=== PATIENT | male | born 1960 | race Caucasian/White ===

== ENCOUNTER 2022-06-07 19:09 | Emergency (ER) | payer OTHER ==
[~2022-06-07] VITALS: Ht 190.5 cm; Wt 145.0 kg
[~2022-06-07 19:09] MED LIST: ADULT ASPIRIN E81 MG OR; ASPIRIN EC81 MG PO; DIABETA2.5 MG PO; GENTAMICIN0.11 EX; LEVOTHROID25 MCG OR; LEVOTHYROXIN25 MCG PO; LYRICA150 MG OR; LYRICA150 MG PO; METFORMIN1000 MG PO; NORCO1 TA1 PO; TRICOR145 MG PO; XARELTO20 MG PO
[2022-06-07 19:17] VITALS: BP 128/73
[2022-06-07] MEDS ORDERED: PRAVASTATIN SOD20 MG PO (19:34)
[2022-06-07] MEDS ORDERED: CLOPIDOGREL75 MG PO (19:35)
[2022-06-07] MEDS ORDERED: SPIRONOLACTONE50 MG PO (19:36)
[2022-06-07] MEDS ORDERED: LOSARTAN POTASS50 MG PO (19:36)
[2022-06-07] MEDS ORDERED: TAMSULOSIN HCL0.4 MG PO (19:36)
[2022-06-07] MEDS ORDERED: LEVOTHYROXIN50 MCG PO (19:37)
[2022-06-07] MEDS ORDERED: FUROSEMIDE20 MG PO (19:37)
[2022-06-07 19:38] LABS: HEMATOCRIT 39.3 % (39.0-50.0); HEMOGLOBIN 13.7 g/dl (14.0-18.0); IMMATURE GRANULOCYTES 0.2 % (0.0-5.0); MEAN CORPUSCULAR HGB 32.1 pG CALC (26.0-32.0); MEAN CORPUSCULAR HGB CONC 34.9 g/dL CAL (32.0-36.0); NEUT# 6.3 thou/uL (1.82-7.42); RED BLOOD COUNT 4.27 mill/uL (4.70-6.10); RED CELL DISTRI WIDTH 11.7 % (11.5-15.5)
[2022-06-07] MEDS ORDERED: LOPID600 MG PO (19:38)
[2022-06-07] MEDS ORDERED: GABAPENTIN100 MG PO (19:38)
[2022-06-07] MEDS ORDERED: HUMALOG100 UNIT (19:39)
[2022-06-07] MEDS ORDERED: LEVEMIR100 UNIT (19:40)
[2022-06-07 20:02] LABS: ALBUMIN 4.6 g/dL (3.2-5.0); CREATININE 1.6 mg/dL (0.7-1.3)
[2022-06-07 20:04] LABS: BILIRUBIN, TOTAL 1.3 mg/dL (0.0-1.4); POTASSIUM 5.5 mmol/l (3.5-5.1); TOTAL PROTEIN 8.3 g/dL (6.3-8.2)
[2022-06-07 20:32] LABS: TSH, 3RD GENERATION 3.18 uIU/mL (0.47 - 4.68)
[2022-06-07 20:53] VITALS: BP 106/61
[2022-06-07 21:01] VITALS: BP 101/53
[2022-06-07 21:16] VITALS: BP 112/53
[2022-06-07 21:31] VITALS: BP 118/69
[2022-06-07 21:44] VITALS: BP 118/69
== END 2022-06-07 21:47 | disposition short-term general hospital (02) | DRG 313 ==
LOC: ED 19:09
PROVIDERS: Emergency Medicine
DX: R07.9 Chest pain, unspecified (principal); I49.8 Other specified cardiac arrhythmias; I10 Essential (primary) hypertension; E11.40 Type 2 diabetes mellitus with diabetic neuropathy, unspecified; E78.5 Hyperlipidemia, unspecified; Z79.4 Long term (current) use of insulin; Z20.822 Contact with and (suspected) exposure to COVID-19

== ENCOUNTER 2024-09-15 12:48 | Observation (INO) | payer OTHER ==
[~2024-09-15] VITALS: Ht 190.5 cm; Wt 135.0 kg
[2024-09-15] VITALS (16 sets, daily range): BP systolic 89–142; BP diastolic 60–85
[~2024-09-15 12:48] MED LIST changes: +CLOPIDOGREL75 MG PO; +DOXYCYCLINE100 MG PO; +FUROSEMIDE20 MG PO; +GABAPENTIN100 MG PO; +HUMALOG100 UNIT; +LEVEMIR100 UNIT; +LEVOTHYROXIN50 MCG PO; +LOPID600 MG PO; +LOSARTAN POTASS50 MG PO; +PRAVASTATIN SOD20 MG PO; +SPIRONOLACTONE50 MG PO; +TAMSULOSIN HCL0.4 MG PO
--- NOTE | 2024-09-15 12:50 | NUR ---
PT TO ROOM VIA WC WITH SPOUSE
[2024-09-15] MEDS ORDERED: oxyCODONE 5MG/ ACETAMINOPHEN 325MG TAB PO ONE (13:25)
[2024-09-15] MEDS ORDERED: ONDANSETRON 4 MG/TAB ODT PO ONE (13:25)
[2024-09-15 13:37] LABS: BASO% 0.1 % (0-3); EOS% 0.1 % (0-8); HEMATOCRIT 41.9 % (39.0-50.0); HEMOGLOBIN 14.1 g/dl (14.0-18.0); IMMATURE GRANULOCYTES 0.3 % (0.0-5.0); LYMPH% 5.9 % (15-41); MEAN CELL VOLUME 97.7 fL CALC (80.0-100.0); MEAN CORPUSCULAR HGB 32.9 pG CALC (26.0-32.0); MEAN CORPUSCULAR HGB CONC 33.7 g/dL CAL (32.0-36.0); MONO% 5.6 % (2-13); NEUT# 13.02 thou/uL (1.82-7.42); RED BLOOD COUNT 4.29 mill/uL (4.70-6.10)
[2024-09-15 13:52] LABS: ALBUMIN 3.3 g/dL (3.2-5.0); CREATININE 1.3 mg/dL (0.7-1.3); POTASSIUM 4.5 mmol/l (3.5-5.1); TOTAL PROTEIN 6.2 g/dL (6.3-8.2)
[2024-09-15 14:03] LABS: BILIRUBIN, TOTAL 1.3 mg/dL (0.2-1.3)
[2024-09-15] MEDS ORDERED: INSULIN REGULAR (HUMAN) 100 UNIT/ML INJ IV ONE (14:55)
[2024-09-15] MEDS ORDERED: Iopamidol 370 (Isovue) 76% 100 ML SDV IV ONE (14:55)
[2024-09-15] MEDS ORDERED: FUROSEMIDE 40 MG/4 ML SDV IV ONE (14:55)
--- NOTE | 2024-09-15 17:34 | NUR ---
900ml- urine output
[2024-09-15 17:48] LABS: URINE BILIRUBIN - DIPSTICK Negative (NEGATIVE); URINE BLOOD DIPSTICK Trace-intact (NEGATIVE); URINE GLUCOSE - DIPSTICK 500 mg/dL (NEGATIVE); URINE KETONE Negative (NEGATIVE); URINE LEUK ESTERASE Negative (NEGATIVE); URINE NITRITE - DIPSTICK Negative (Negative); URINE PH 5.5 (4.5-8.0); URINE PROTEIN - DIPSTICK 100 mg/dL (NEG-TRACE); URINE SPECIFIC GRAVITY 1.015; URINE UROBILINOGEN - DIPSTICK 0.2 E.U./dL (0.2)
[2024-09-15 17:49] LABS: URINE COLOR Yellow
[2024-09-15 18:00] LABS: URINE RBC 0-2 RBC/hpf (0-5); URINE WBC 0-2 WBC/hpf (0-5)
[2024-09-15 18:01] LABS: URINE COARSE GRANULAR CAST FEW lpf
--- NOTE | 2024-09-15 19:05 | NUR ---
REPORT RECEIVED FROM Nanette BELTRAN RN
[2024-09-15] MEDS ORDERED: Zaleplon 5 MG/CAP PO PRN (19:20)
[2024-09-15] MEDS ORDERED: MAGNESIUM HYDROXIDE 30 ML UDC PO PRN (19:20)
[2024-09-15] MEDS ORDERED: ACETAMINOPHEN 325 MG/TAB PO PRN (19:20)
[2024-09-15] MEDS ORDERED: ENOXAPARIN SODIUM 100 MG/ML SYR SC SCH (20:00)
--- NOTE | 2024-09-15 20:30 | NUR ---
PATIENT BLOOD GLUCOSE 205. PATIENT PROVIDED WITH MEAL AND LOVENOX ADMINISTERED.
[2024-09-15] MEDS ORDERED: LOSARTAN POTASS50 MG PO (20:43)
[2024-09-15] MEDS ORDERED: FUROSEMIDE20 MG PO (20:44)
[2024-09-15] MEDS ORDERED: POT CHLORIDE10 ME5 PO (20:48)
[2024-09-15] MEDS ORDERED: BAYER ASPIRIN E81 MG PO (20:48)
[2024-09-15] MEDS ORDERED: SPIRONOLACTONE50 MG PO (20:49)
[2024-09-15] MEDS ORDERED: HUMALOG100 UNIT/M SC (20:53)
[2024-09-15] MEDS ORDERED: LANTUS100 UNIT SC (20:54)
--- NOTE | 2024-09-15 21:49 | NUR ---
CALL TO ICU FOR PATIENT REPORT. PATIENT TO BE ASSIGNED TO ROOM 3. NURSE TO CALL BACK FOR REPORT.
--- NOTE | 2024-09-15 22:48 | NUR ---
REPORT GIVEN TO Emily DUNCAN RN
--- NOTE | 2024-09-15 23:00 | NUR ---
RECIEVED PATIENT FROM RADAMES TORRES IN THE ER. PATIENT AMBULATES WITH THE USE OF A CANE. SN HAD PATIENT REMOVE HIS STREET CLOTHES AND GET INTO A GOWN. ASSESSMENT COMPLETED AT THIS TIME. LUNGS CLEAR TOO ASCULTATION. PATIENT STATES NO EPISODES OF SOB. PSO2 96% ON RA. PATIENT HAS PLUS 3 EDEMA TO BILATERAL LOWER EXTREMITIES. RIGHT ANKLE HAS AN INTACT BLISTER. PHOTO OBTAINED AND PLACED IN THE CHART. PATIENT REQUESTED TO SIT AND SLEEP IN THE RECLINER. PATIENT STATES HE SLEEPS IN A RECLINER AT HOME. V/S STABLE ON THE MONITOR.
--- NOTE | 2024-09-15 23:10 | NUR ---
PATIENT TRANSPORTED TO ICU ROOM 3. CARE HANDED OVER TO Emily DUNCAN RN
[2024-09-16] VITALS (24 sets, daily range): BP systolic 88–131; BP diastolic 53–97
--- NOTE | 2024-09-16 00:27 | NUR ---
PATIENT IS SOUND ASLEEP IN THE RECLINER. ASSESSMENT UNCHANGED.
--- NOTE | 2024-09-16 01:26 | NUR ---
PATIENT SOUND ASLEEP. NO DISTRESS. V/S STABLE.
--- NOTE | 2024-09-16 03:30 | NUR ---
PATIENT REMAINS ASLEEP IN THE RECLINER. ATTEMPTED TO HAVE LOWER EXTREMITIES ELEVATED BUT DUE TO THE WEIGHT OF PATIENTS LEGS FOOT REST WILL NOT STAY ELEVATED. PATIENT IN NO DISTRESS. V/S STABLE.
--- NOTE | 2024-09-16 05:00 | NUR ---
PATIENT PSO2 DECREASED TO 89. PATIENT IS A MOUTH BREATHER. PATIENT AWOKE AND PSO2 INCREASED TO 95% SUPPLEMENTAL OXYGEN APPLIED AT 2L TO ASSIST PATIENT WHILE SLEEPING.
[2024-09-16 05:30] LABS: CHOLESTEROL HDL RATIO 5.3 (<4.4 (CALC)); MAGNESIUM 2.1 mg/dL (1.6-2.3)
--- NOTE | 2024-09-16 06:32 | NUR ---
PATIENT SLEEPING, PSO2 99% ONN 2L OF OXYGEN. V/S STABLE. NO DISTRESS.
[2024-09-16] MEDS ORDERED: ENOXAPARIN SODIUM 80 MG/0.8 ML SYR SC SCH ×2 (08:00)
[2024-09-16] MEDS ORDERED: ENOXAPARIN SODIUM 60 MG/0.6 ML SYR SC SCH (08:00)
--- NOTE | 2024-09-16 08:11 | NUR ---
PT IS IN THE CHAIR WATCHING TV. CALL LIGHT IN REACH.
[2024-09-16] MEDS ORDERED: DEXTROSE 250 ML IV PRN ×2 (09:25→09:30)
[2024-09-16] MEDS ORDERED: LORazepam 2 MG/ML IV PRN (09:30)
[2024-09-16] MEDS ORDERED: FUROSEMIDE 20 MG/TAB PO SCH (10:00)
[2024-09-16] MEDS ORDERED: INSULIN GLARGINE 100 UNITS/ML SC SCH (10:00)
[2024-09-16] MEDS ORDERED: ASPIRIN EC 81 MG/TAB PO SCH (10:00)
--- NOTE | 2024-09-16 10:00 | NUR ---
PT IS SITTING IN CHAIR WITH GIRLFRIEND AT THE BEDSIDE AND CALL LIGHT IN REACH.
[2024-09-16] MEDS ORDERED: INSULIN LISPRO 100 UNITS/ML ML SC SCH (11:00)
--- NOTE | 2024-09-16 12:05 | NUR ---
PT IS AWAKE IN THE ROOM WITH FAMILY AT THE BEDSIDE. CALL LIGHT IN REACH.
[2024-09-16] MEDS ORDERED: LEVOTHYROXINE SODIUM 50 MCG/TAB PO SCH (13:00)
[2024-09-16] MEDS ORDERED: oxyCODONE HCL 5 MG/TAB PO PRN (13:55)
--- NOTE | 2024-09-16 14:06 | NUR ---
PT IS SITTING IN THE CHAIR, GIRLFRIEND AT THE BEDSIDE. CALL LIGHT IN REACH. PT HAS BEEN EDUCATED ON ELEVATING HIS LEGS. PT REFUSES TO ELEVATE HIS LEGS.
--- NOTE | 2024-09-16 16:04 | NUR ---
PT IS SLEEPING IN CHAIR. CONNECTED TO TELEMETRY WITH UNLABORERED RESPIRATIONS.CALL LIGHT IN REACH.
--- NOTE | 2024-09-16 18:00 | NUR ---
PT IS SITTING IN THE CHAIR WATCHING TV. GIRLFRIEND AT THE BEDSIDE. CALL LIGHT IN REACH.
--- NOTE | 2024-09-16 19:30 | NUR ---
PATIENT RECEIVED IN BEDSIDE HANDOFF. PATIENT C/O DISCOMFORT DUE TO RECLINER NOT KEEPING LEGS ELEVATED. EDUCATION PROVIDED TO PATIENT AND REGARDING FALL PRECAUTIONS, CALL LGHT AND ADMITTING DX/PLAN OF CARE. RECLINER OBTAINED FROM ED FOR BETTER COMFORT. PATIENT REPORTED ALLEVIATION OF DISCOMFORT, MEDICATION TO BE PROVIDED FOR PAIN AND ALLOW FOR RESTFUL NIGHT SLEEP. CALL LIGHT OBSERVED WITHIN REACH
[2024-09-16] MEDS ORDERED: TAMSULOSIN HCL 0.4 MG CAP PO SCH (21:00)
[2024-09-17] VITALS (13 sets, daily range): BP systolic 103–132; BP diastolic 57–89
--- NOTE | 2024-09-17 | NUR ---
PATIENT OBSERVED RESTING COMFORTABLY WITH CALL LIGHT IN REACH
--- NOTE | 2024-09-17 01:54 | NUR ---
NO DISTRESS NOTED, RESTING COMFORTABLY, CALL LIGHT IN REACH
--- NOTE | 2024-09-17 03:44 | NUR ---
PATIENT REMAINS STABLE AT THIS TIME. CALL LIGHT WITHIN REACH
--- NOTE | 2024-09-17 04:37 | NUR ---
PATIENT MEDICATED FOR PAIN PER MD ORDER. DENIES OTHER COMPLAINTS. URINAL EMPTIED. RESTING COMFORTABLY WITH CALL LIGHT IN REACH
[2024-09-17 05:49] LABS: BASO% 0.4 % (0-3); EOS% 1.2 % (0-8); HEMATOCRIT 38.6 % (39.0-50.0); HEMOGLOBIN 13.5 g/dl (14.0-18.0); IMMATURE GRANULOCYTES 0.4 % (0.0-5.0); LYMPH% 17.8 % (15-41); MEAN CELL VOLUME 97.5 fL CALC (80.0-100.0); MEAN CORPUSCULAR HGB 34.1 pG CALC (26.0-32.0); MONO% 9.8 % (2-13); NEUT# 5.95 thou/uL (1.82-7.42); NEUT% 70.4 % (42-76); RED BLOOD COUNT 3.96 mill/uL (4.70-6.10); RED CELL DISTRI WIDTH 11.8 % (11.5-15.5)
[2024-09-17 05:55] LABS: ALBUMIN 3.1 g/dL (3.2-5.0); BILIRUBIN, TOTAL 1.1 mg/dL (0.2-1.3); CREATININE 1.2 mg/dL (0.7-1.3); POTASSIUM 4.1 mmol/l (3.5-5.1); TOTAL PROTEIN 6.1 g/dL (6.3-8.2)
--- NOTE | 2024-09-17 07:40 | NUR ---
RECEIVED BEDSIDE SHIFT REPORT. PATIENT IS CALM, SITTING BACK IN RECLINER, FEET ELEVATED. PATIENT DENIES ANY NEEDS AT THIS TIME. RR EVEN AND UNLABORED. PATIENT REPORTS CONTINUED PAIN IN LEGS, BUT STATES IT IS TOLERABLE. WILL MEDICATE WHEN PAIN MED IS AVAILABLE. CALL LIGHT IN REACH. WILL CONTINUE TO MONITOR.
[2024-09-17] MEDS ORDERED: DOXYCYCLINE HYCLATE 100 MG in SODIUM CHLORIDE 0.9% 100 ML IV SCH (09:00)
--- NOTE | 2024-09-17 10:00 | NUR ---
PATIENT IS CALM, SITTING UP IN WHEELCHAIR. RR EVEN AND UNLABORED. PATIENT RELATES PAIN 8 OUT OF 10, WILL BE MEDICATED PER MAR. PATIENT'S WATER CUP REFILLED. DENIES ANY OTHER NEEDS. CALL LIGHT IN REACH, WILL CONTINUE TO MONITOR.
--- NOTE | 2024-09-17 12:00 | NUR ---
PATIENT SITTING UP IN RECLINER, DAUGHTER AT BEDSIDE. PATIENT HAD CONVERSATION WITH MOLD INJECTOR ABOUT GLUCOSE LEVEL CONTROL. PATIENT WAS UP TO BATHROOM. DENIES ANY OTHER NEEDS AT THIS TIME. AWAITING DISCHARGE ORDER FROM DR. MORRELL. CALL LIGHT IN REACH, WILL CONTINUE TO MONITOR.
[2024-09-17] MEDS ORDERED: VIBRAMYCIN100 M2 PO (12:32)
[2024-09-17] MEDS ORDERED: XARELTO STARTER1 TAB PO (12:37)
[2024-09-17] MEDS ORDERED: RIVAROXABAN 20 MG TAB PO SCH (17:00)
--- NOTE | 2024-09-20 11:46 | NUR ---
Discharge follow up call completed 09/20/24. Pt states he is doing well and improving. He still has discomfort in his lower extremity but it is improving also. Pt is taking medication as directed. Pt has a follow up appointment with his PCP on 10/05/24. No needs or concerns vrbalized by patient at this time.
== END 2024-09-17 16:43 | disposition home or self-care (01) | DRG 299 ==
LOC: ED 12:48 → ED-I 18:45 → ED 18:58 → ED-I 18:59 → ICU 22:05
PROVIDERS: Internal Medicine; Nurse Practitioner Family; ADMIT Internal Medicine; ATTEND Internal Medicine
DX: I82.412 Acute embolism and thrombosis of left femoral vein (principal); I26.99 Other pulmonary embolism without acute cor pulmonale; I10 Essential (primary) hypertension; E11.51 Type 2 diabetes mellitus with diabetic peripheral angiopathy without gangrene; E11.42 Type 2 diabetes mellitus with diabetic polyneuropathy; E78.5 Hyperlipidemia, unspecified; E03.9 Hypothyroidism, unspecified; I49.8 Other specified cardiac arrhythmias; N40.0 Benign prostatic hyperplasia without lower urinary tract symptoms; F17.210 Nicotine dependence, cigarettes, uncomplicated; E66.01 Morbid (severe) obesity due to excess calories; Z68.37 Body mass index [BMI] 37.0-37.9, adult; Z95.0 Presence of cardiac pacemaker; Z95.820 Peripheral vascular angioplasty status with implants and grafts; Z79.4 Long term (current) use of insulin; Z72.89 Other problems related to lifestyle
CPT/HCPCS: J1650; J1815; J1940; Q9967